=== PATIENT | female | born 1990 | race Caucasian/White ===

== ENCOUNTER 2022-08-07 10:15 | Outpatient (CLI) | payer OTHER, SELFPAY | END 2022-08-07 10:16 | disposition home or self-care (01) | LOC: NFLDREF 10:16 | PROVIDERS: PCP Emergency Medicine; Visit Provider Obstetrics & Gynecology | DX: N93.9 Abnormal uterine and vaginal bleeding, unspecified (principal) | CPT/HCPCS: 84443 ==

== ENCOUNTER 2022-08-28 11:06 | Outpatient (CLI) | payer OTHER, SELFPAY | END 2022-08-28 11:07 | disposition home or self-care (01) | PROVIDERS: PCP Emergency Medicine; Visit Provider Emergency Medicine | DX: D72.819 Decreased white blood cell count, unspecified (principal); N93.9 Abnormal uterine and vaginal bleeding, unspecified | CPT/HCPCS: 80076; 82525; 82607; 82746 ==

== ENCOUNTER 2022-09-15 07:03 | Outpatient (CLI) | payer OTHER, SELFPAY ==
--- NOTE | 2022-09-15 07:15 | CRLHL7_ITS ---
For Patients: As a result of the Century Cures Act, medical imaging exams and procedure reports are released immediately into your electronic medical record. You may view this report before your referring provider. If you have questions, please contact your health care provider. INDICATION: ELEVATED LFTS COMPARISON: none TECHNIQUE: Real time garcia scale imaging and color Doppler analysis was performed of the right upper quadrant. FINDINGS: The patient`s liver is of normal size and has mildly increased echogenicity. There is a normal appearance of the hepatic IVC and proximal abdominal aorta. There is no evidence of ascites. The gallbladder is absent. The common bile duct is of normal size and measures 3.5 mm in diameter at the level of the srini hepatis. The pancreas appears normal. There is no evidence of a stone or hydronephrosis within the right kidney. The right kidney measures 10.6 cm in length. IMPRESSION: Mild hepatic steatosis. Dictated by Floyd Damon MD @ 09/15/2022 9:38:32 AM (Electronically Signed)
== END 2022-09-15 07:04 | disposition home or self-care (01) ==
LOC: US 07:05
PROVIDERS: PCP Emergency Medicine; Visit Provider Emergency Medicine
DX: R74.01 Elevation of levels of liver transaminase levels (principal); K76.0 Fatty (change of) liver, not elsewhere classified
CPT/HCPCS: 76705

== ENCOUNTER 2022-12-15 10:10 | Outpatient (CLI) | payer OTHER, SELFPAY | END 2022-12-15 10:11 | disposition home or self-care (01) | LOC: NFLDREF 12-17 07:13 | PROVIDERS: PCP Emergency Medicine; Referring Provider Emergency Medicine; Visit Provider Emergency Medicine | DX: R78.79 Finding of abnormal level of heavy metals in blood (principal) | CPT/HCPCS: 82525 ==

== ENCOUNTER 2023-05-18 09:28 | Outpatient (CLI) | payer OTHER, SELFPAY | END 2023-05-18 09:29 | disposition home or self-care (01) | LOC: NFLDREF 05-22 15:21 | PROVIDERS: PCP Emergency Medicine; Referring Provider Emergency Medicine; Visit Provider Emergency Medicine | DX: D70.9 Neutropenia, unspecified (principal); D72.819 Decreased white blood cell count, unspecified; K76.0 Fatty (change of) liver, not elsewhere classified; R74.01 Elevation of levels of liver transaminase levels | CPT/HCPCS: 80053; 80061 ==

== ENCOUNTER 2023-11-05 12:15 | Outpatient (CLI) | payer OTHER, SELFPAY ==
--- NOTE | 2023-11-05 12:30 | US_ITS ---
Patient: BASILIA FISHER Facility:?[facility] Patient ID:?[id number] Site Patient ID:?[id number]. Site :?1990 Study:?US-OB Pelvis OB TV-11/05/2023 1:07:14 PM Ordering Physician:?WEN WILSON CNP Final Report: INDICATION: Dating and viability. Last menstrual period 09/06/2023 (gestational age 8 weeks 4 days). TECHNIQUE: Ultrasound OB pelvis transvaginal. Real-time garcia-scale imaging of the pelvis was performed. COMPARISON: None. FINDINGS: There is a single intrauterine gestation. The embryo demonstrates a regular cardiac rate measuring 130 beats per minute. The embryo`s crown rump length measurement of 0.6 cm corresponds to a gestational age of 6 weeks 3 days with a sonographic due date of 06/27/2024. There is a normal-appearing yolk sac, which measures 3 mm. There appears to be a small perigestational hemorrhage along the right aspect of the gestational sac measuring 1.6 x 1.4 cm. The ovaries are normal in sonographic appearance. A corpus luteum is seen within the left ovary measuring up to 1.9 cm. There are no suspicious fluid collections noted in the cul-de-sac. IMPRESSION: Single viable intrauterine with sonographic gestational age of 6 weeks 3 days, which is discordant with the patient`s last menstrual period. Probable small subchorionic hematoma adjacent to the gestational sac measuring up to 1.6 cm. Dictated by Margret Singleton MD @ 11/06/2023 10:48:38 AM Signed by:?Margret Singleton MD @11/06/2023 10:48:38 AM (Electronic Signature)
== END 2023-11-05 12:16 | disposition home or self-care (01) ==
LOC: US 12:16
PROVIDERS: PCP Emergency Medicine; Visit Provider Registered Nurse
DX: Z34.91 Encounter for supervision of normal pregnancy, unspecified, first trimester (principal); Z3A.01 Less than 8 weeks gestation of pregnancy
CPT/HCPCS: 76817; 86703; 86706; 86803; 86850; 86900; 86901; 87086; 87340

== ENCOUNTER 2023-11-05 14:14 | Outpatient (CLI) | payer OTHER, SELFPAY | END 2023-11-05 14:15 | disposition home or self-care (01) | PROVIDERS: PCP Emergency Medicine; Visit Provider Advanced Practice Midwife | DX: Z34.91 Encounter for supervision of normal pregnancy, unspecified, first trimester (principal); Z3A.08 8 weeks gestation of pregnancy | CPT/HCPCS: 86592; 86703; 86704; 86706; 86762; 86787; 86803; 86850; 86900; 86901; 87086; 87340 ==

== ENCOUNTER 2023-11-18 12:44 | Outpatient (CLI) | payer OTHER, SELFPAY ==
--- NOTE | 2023-11-18 13:00 | US_ITS ---
Patient: BASILIA FISHER Facility:?[facility] Patient ID:?[id number] Site Patient ID:?[id number]. Site :?1990 Study:?US-OB Pelvis DATING AND VIABILITY-11/18/2023 1:22:17 PM Ordering Physician:FRANK MC Final Report: INDICATION: Follow-up dating and viability. TECHNIQUE: Ultrasound OB pelvis transvaginal. Real-time garcia-scale imaging of the pelvis was performed. COMPARISON: Ultrasound OB pelvis 11/05/2023. FINDINGS: There is a single intrauterine gestation. The embryo demonstrates a regular cardiac rate measuring 171 beats per minute. The embryo`s crown rump length measurement of 2.3 cm corresponds to a gestational age of 9 weeks, 0 days with a sonographic due date of 06/22/2024. There is a normal appearing yolk sac. There are no gross abnormalities noted within the embryo at this early state of development. The placenta has not yet developed. There is no sign of perigestational hemorrhage. The ovaries are of normal size. Left corpus luteum measuring 2.4 x 1.5 x 2.1 cm. There are no suspicious fluid collections noted in the cul-de-sac. IMPRESSION: Single live intrauterine with an estimated gestational age of 9 weeks, 0 days and a heart rate of 171 bpm. Dictated by Gustabo Chávez MD @ 11/19/2023 8:19:03 AM Signed by:?Gustabo Chávez MD @11/19/2023 8:19:03 AM (Electronic Signature)
== END 2023-11-18 12:45 | disposition home or self-care (01) ==
LOC: US 12:44
PROVIDERS: PCP Emergency Medicine; Visit Provider Advanced Practice Midwife
DX: Z34.91 Encounter for supervision of normal pregnancy, unspecified, first trimester (principal); Z3A.09 9 weeks gestation of pregnancy
CPT/HCPCS: 76817

== ENCOUNTER 2023-11-30 10:19 | Outpatient (CLI) | payer OTHER, SELFPAY | END 2023-11-30 10:20 | disposition home or self-care (01) | LOC: NFLDREF 12-17 09:30 | PROVIDERS: PCP Emergency Medicine; Referring Provider Emergency Medicine; Visit Provider Advanced Practice Midwife | DX: O36.80X0 Pregnancy with inconclusive fetal viability, not applicable or unspecified (principal); R78.79 Finding of abnormal level of heavy metals in blood | CPT/HCPCS: 82525 ==

== ENCOUNTER 2024-02-12 09:10 | Outpatient (CLI) | payer OTHER, SELFPAY ==
--- NOTE | 2024-02-12 09:15 | CRLHL7_ITS ---
For Patients: As a result of the 21st Century Cures Act, medical imaging exams and procedure reports are released immediately into your electronic medical record. You may view this report before your referring provider. If you have questions, please contact your health care provider. INDICATION: Evaluate anatomy. COMPARISON: none TECHNIQUE: Real time garcia scale imaging of the fetus was performed as well as color Doppler analysis of the umbilical vessels. FINDINGS: Sonographic imaging demonstrates a single living intrauterine gestation. heart rate not documented. motion is present, however. Fetus has a breech position. The placenta lies posteriorly without evidence of placenta previa. Placental edge is 3.1 cm from the internal cervical os. Amniotic fluid volume appears normal. Single deepest vertical pocket: 3.3 cm. The cervix is closed and measures 4.3 cm in length. The composite ultrasound gestational age is calculated at 21 weeks 0 days with an estimated sonographic due date of 06/24/2024. The estimated weight is 426 grams which lies at the 89th %. The following biometric measurements were obtained: Biparietal diameter: 4.7 cm/20 weeks 1 day 31st% Head circumference: 18.1 cm/20 weeks 4 days 38th% Abdominal circumference: 15.9 cm/21 weeks 0 days 58th% Femur length: 3.9 cm/22 weeks 3 days 92nd% The HC/AC ratio measures: 1.14 range (1.06-1.25) On anatomic survey, there is a normal appearance of the cavum septi pellucidi, cisterna magna and cerebellum. Bilateral choroid plexus cysts measure 5.6 millimeters on the right and 7 x 5 millimeters on the left. The nose, lips, and facial profile appear normal. The cervical, thoracic and lumbar spine are well visualized and appear normal. There is a normal four-chamber heart view and the left and right ventricular outflow tracts appear normal. The diaphragm and stomach appear normal. The kidneys and bladder also appear normal. There is a normal three-vessel cord and cord insertion site. The four extremities appear normal. IMPRESSION: Concordance of clinical and sonographic dating. Choroid plexus cysts are present measuring 5 x 6 millimeters on the right and 7 x 5 millimeters on the left. Remainder of the anatomic survey normal. A level 2 ultrasound is recommended. heart motion subjectively viewed during the exam but not documented. FHR should be documented on the follow-up study. Incomplete visualization of the 3VV and 3VTV. These could also be reassessed on follow-up imaging. Dictated by Floyd Damon MD @ 02/12/2024 12:20:12 PM (Electronically Signed)
== END 2024-02-12 09:11 | disposition home or self-care (01) ==
LOC: US 09:11
PROVIDERS: PCP Emergency Medicine; Visit Provider Obstetrics & Gynecology
DX: Z34.92 Encounter for supervision of normal pregnancy, unspecified, second trimester (principal); O36.8320 Maternal care for abnormalities of the fetal heart rate or rhythm, second trimester, not applicable or unspecified; Z3A.21 21 weeks gestation of pregnancy
CPT/HCPCS: 76805

== ENCOUNTER 2024-02-24 07:58 | Outpatient (CLI) | payer OTHER, SELFPAY | END 2024-02-24 07:59 | disposition home or self-care (01) | LOC: US 07:59 | PROVIDERS: PCP Emergency Medicine; Visit Provider Obstetrics & Gynecology | DX: O35.03X0 Maternal care for (suspected) central nervous system malformation or damage in fetus, choroid plexus cysts, not applicable or unspecified (principal); Z3A.22 22 weeks gestation of pregnancy | CPT/HCPCS: 76811 ==

== ENCOUNTER 2024-04-06 08:09 | Outpatient (CLI) | payer OTHER, SELFPAY | END 2024-04-06 08:10 | disposition home or self-care (01) | LOC: NFLDREF 04-08 11:34 | PROVIDERS: PCP Emergency Medicine; Referring Provider Emergency Medicine; Visit Provider Obstetrics & Gynecology | DX: Z34.93 Encounter for supervision of normal pregnancy, unspecified, third trimester (principal); Z3A.28 28 weeks gestation of pregnancy | CPT/HCPCS: 86592 ==

== ENCOUNTER 2024-05-04 12:51 | Outpatient (CLI) | payer OTHER, SELFPAY ==
--- NOTE | 2024-05-04 13:00 | US_ITS ---
Patient: BASILIA FISHER Facility:?[facility] Patient ID:?[id number] Site Patient ID:?[id number]. Site :?1990 Study:?US-OB Pelvis FOLLOW UP-05/04/2024 1:56:24 PM Ordering Physician:Arvind Quintero Final Report: INDICATION: Gestational diabetes mellitus. TECHNIQUE: Ultrasound OB pelvis transabdominal. Real-time garcia-scale imaging of the fetus was performed as well as color Doppler and spectral Doppler analysis of the umbilical artery. COMPARISON: None. FINDINGS: Single living intrauterine gestation. heart rate: 145 beats per minute. Presentation: Cephalic. Placenta: Posterior. Amniotic fluid deepest pocket: 4.8 cm. The following biometric measurements were obtained: Biparietal diameter: 8.5 cm, 34 weeks 3 days Head circumference: 31.1 cm, 34 weeks 5 days Abdominal circumference: 29.5 cm, 33 weeks 3 day Femur length: 6.6 cm, 33 weeks 6 days Ultrasound age: 34 weeks 1 day. LMP age: 32 weeks 2 day. MADDISON by US: 06/14/2024. MADDISON by LMP: 06/27/2024. EFW: 2280 +/- 342 gram Grams, 85 %. IMPRESSION.: Single live intrauterine gestation with estimated gestational age of 34 weeks 1 day and estimated weight of 2280 grams. Dictated by Chase Mcnally MD @ 05/05/2024 11:05:18 AM Signed by:?Chase Mcnally MD @05/05/2024 11:05:18 AM (Electronic Signature)
== END 2024-05-04 12:52 | disposition home or self-care (01) ==
LOC: US 12:51
PROVIDERS: PCP Emergency Medicine; Visit Provider Obstetrics & Gynecology
DX: O24.419 Gestational diabetes mellitus in pregnancy, unspecified control (principal); Z3A.34 34 weeks gestation of pregnancy
CPT/HCPCS: 76816

== ENCOUNTER 2024-06-02 08:06 | Outpatient (CLI) | payer OTHER, SELFPAY ==
--- NOTE | 2024-06-02 08:15 | CRLHL7_ITS ---
For Patients: As a result of the Century Cures Act, medical imaging exams and procedure reports are released immediately into your electronic medical record. You may view this report before your referring provider. If you have questions, please contact your health care provider. INDICATION: Third trimester scan, evaluate growth. COMPARISON: 05/04/2024 TECHNIQUE: Real time garcia scale imaging of the fetus was performed. FINDINGS/IMPRESSION: Sonographic imaging demonstrates a single living intrauterine gestation. Fetus demonstrates a regular cardiac rate of 144 beats per minute. Fetus has a vertex position. The placenta lies left fundal posterior. Amniotic fluid volume appears normal and there is a single deepest vertical pocket: 4.5 cm. The estimated weight is 3159gm which lies at the 75th %. On the prior OB ultrasound exam dated 05/04/2024 the estimated weight was at the 85th%. BPD 84th percentile. HC is 61st percentile. AC 84th percentile. FL 51st percentile. The HC/AC ratio measures 1.00 range (0.91-1.05). Sonographic gestational age 37 weeks 2 days and sonographic due date 06/21/2024. Sonographic age 6 days ahead of the clinical age. Dictated by Floyd Damon MD @ 06/03/2024 8:58:32 AM (Electronically Signed)
== END 2024-06-02 08:07 | disposition home or self-care (01) ==
LOC: US 08:06
PROVIDERS: PCP Emergency Medicine; Visit Provider Obstetrics & Gynecology
DX: O24.419 Gestational diabetes mellitus in pregnancy, unspecified control (principal); Z3A.37 37 weeks gestation of pregnancy
CPT/HCPCS: 76816; 87081; 87653

== ENCOUNTER 2024-06-20 06:50 | Inpatient (IN) | payer OTHER, SELFPAY ==
[2024-06-20] VITALS (38 sets, daily range): BP systolic 110–176; BP diastolic 56–101; PULSE 56–101; RESP 16–18; TEMP 36.5–36.9; O2SAT 93–100; BMI 33.3
[2024-06-20 07:52] LABS: Eosinophils Absolute Auto 0.04 K/uL (0.00-0.50); Eosinophils Percent Auto 0.8 % (0.0-7.0); Hematocrit 38.3 % (33.0-51.0); Immature Granulocytes Abs Auto 0.01 K/uL (0.00-0.30); Immature Granulocytes Pct Auto 0.2 %; Lymphocytes Absolute Auto 1.27 K/uL (0.90-2.90); Lymphocytes Percent Auto 26.2 % (20-44); Mean Corpuscular HGB Conc 34 gm/dL (32-36); Mean Corpuscular Hemoglobin 28 pg (26-34); Mean Corpuscular Volume 84 fL (80-100); Monocytes Percent Auto 7.6 % (0.0-11.0); Neutrophils Absolute Auto 3.15 K/uL (1.7-7.0); Neutrophils Percent Auto 65.2 % (42.0-72.0); Platelet Count* 158 K/uL (140-440); RDW Coefficient of Variation % 12.5 % (11.5-15.5); Red Blood Count 4.57 m/uL (4.00-5.20); White Blood Count* 4.84 K/uL (4.50-11.00)
[2024-06-20] MEDS: LACTATED RINGERS 1000 ML 1,000 ML 25 ML IV (07:53)
[2024-06-20] MEDS: OXYTOCIN 30 unit/500 ML in NS 30 UNIT/500 ML BAG IVPB (07:54)
--- NOTE | 2024-06-20 08:04 | W.PM.LDBA ---
Subjective History of Present Illness Time Seen by Provider: 07:45 Date Seen: 06/20/24 Narrative: Patient is being admitted to Labor and Delivery for labor due to GDM A1 her blood sugar this morning was 100. She is a 33 year old at 39 weeks gestation. Her full history and physical was dictated by Dr. Quintanilla on 06/08/2024. Please see this for details. She reports normal movement. She had some regular contractions over the weekend but then they went away. No bloody show or abnormal vaginal discharge. No leaking fluid. Verbal consent obtained to perform artificial rupture of membranes. Specific Issues/Plans : [employer]: Jhonny Feliciano. Baby: Girl! Yvonne H&P by [facility] on 06/08/2024 Dating by 1st trimester US: 15 day difference between LMP and u/s dating. Gestational diabetes. Currently diet-controlled. 1hr GTT: 204 Referral to nutrition placed on 04/06/2024 Ultrasounds for estimated weight at 32 (order placed on 04/06/2024) and 36 weeks (ordered on 04/20/24) If GDM A2: Twice weekly testing recommended Mild thrombocytopenia: 04/06/24 138K Platelets at 34 wks: 158K Hx of low white blood cell count -mildly low again at NOB Hx of high copper level once, repeat normal -previously worked up for, repeat WNL during this Hx of heart murmur as a child Choroid plexus cysts noted at 20 weeks, 4 days. Referral for level 2 ultrasound placed Maternity 21 testing was normal Repeat USN at 32-34 weeks for EFW due to >97% at LVL 2 Imagin. LVL 2 USN: normal anatomy visualized. Choroid plexus cysts resolved. EFW >97% 2. 05/04/2024 32wks: Vtx, SDP 4.9cm. EFW 2280 g, 5 lb 0 oz, 85%. BPD 93%, HC 77%, AC 81%, FL 80% 3. 06/02/24: cephalic, SDP 4.5, EFW 75%, AC 84%. Flu/covid: declined TDAP: 04/20/2024 RSV: Declined 34wk hgb: 13.0 GBS: Neg OB - Problem Based A/P Additional Plan (1) Encounter for induction of labor: Status: Acute Plan: 1. Start Pitocin per induction protocol. 2. GBS negative 3. Artificial rupture of membranes occurred at 7:50 a.m., clear fluid 4. Planning an epidural for labor analgesia. 5. Blood type A positive (2) Gestational diabetes: Status: Acute Plan: 1. Monitor blood sugars her gestation diabetes protocol OB Exam Physical Exam Vital signs: Temp Pulse Resp BP Pulse Ox 97.8 F 70 18 127/83 98 06/20/24 06:46 06/20/24 08:00 06/20/24 06:46 06/20/24 08:00 06/20/24 08:00 Narrative: GENERAL APPEARANCE: Pleasant, , well-groomed woman in no acute distress. VITAL SIGNS: as noted in nursing notes HEAD: Normocephalic, atraumatic. THYROID: no masses, nodularity, tenderness or enlargement. LUNGS: Clear to auscultation bilaterally without wheezes, rales or rhonchi. HEART: Regular rate and rhythm with normal S1 and S2. No gallop, rub or murmur. ABDOMEN: Gravid. Soft, nontender, nondistended, with normal bowels sounds throughout. EFM: Baseline 120 bpm. Accelerations: present. Decelerations: absent. Moderate variability. Category 1. TOCO: 1 contraction/30 minutes PRESENTATION: Vertex by Talha's maneuvers. SVE: 3 cm/ 60 %/ -1/soft/mid. Esparza score: 9 EXTREMITIES: No cyanosis, clubbing, or edema. No varicosities. NEUROLOGIC: Normal gait and balance. Normal deep tendon reflexes at bilateral patella 2+/2, equal without clonus. PSYCHIATRIC: alert and oriented x3. Normal speech pattern, eye contact and affect. SKIN: Warm, dry, and well perfused. Good turgor. No lesions, nodules or rashes.
[2024-06-20 08:07] LABS: Slide Review Reflex No
[2024-06-20] MEDS: BUPIVACAINE 0.25% PF 10 ML 10 ML ML EPIDURAL (10:50)
[2024-06-20] MEDS: ROPIVACAINE 0.2% 100 ml 100 ML 12 MG EPIDURAL (10:57)
[2024-06-20] MEDS: LACTATED RINGERS 1000 ML 1,000 ML 1200 ML IV (11:03)
--- NOTE | 2024-06-20 12:27 | PM.OBPNL ---
Subjective Time Seen by Provider: 12:15 Date Seen: 06/20/24 Narrative: Subjective: Patient is comfortable w/ epidural. Pitocin: 8 milliunits/minute. Vital signs: Per electronic medical record. EFM: Baseline 110-120bpm, positive accelerations, negative decelerations, moderate variability, reactive. Category 1. [place]: Contractions every 2 minutes. SVE: 8 cm/100 %/0. Assessment: 33-year-old 3 para 2 at 39 weeks 0 days gestation undergoing induction of labor for GDM A1 Plan: 1. Continue Pitocin per labor induction protocol. 2. Continue epidural for labor analgesia. 3. Expect vaginal delivery. Objective Vital Signs: Last Vital Signs Temp 97.9 F 06/20/24 11:50 Pulse 76 06/20/24 12:19 Resp 16 06/20/24 11:50 BP 119/71 06/20/24 12:19 Pulse Ox 100 06/20/24 11:21
--- NOTE | 2024-06-20 12:51 | W.PM.OBVAGDE ---
OB Procedure Vag Delivery Mother Details Mother Details: The patient is a 33 year-old, 3, Para 2, admitted on 06/20/24 at 39w0d gestation. Additional Details Amniotic Membrane Status: AROM Amniotic Membrane Rupture Date: 06/20/24 Amniotic Membrane Rupture Time: 07:50 Amniotic Membrane Fluid Description: Clear Analgesia/Anesthesia Type: Epidural Waterbirth: No Pitcoin: Yes Intrapartal Events: Labor Induction Induction Method: per pitocin protocol Labor Onset: 09:55 Complete: 12:39 Pushin:40 Heart: heart tones during second stage were category 2, reassuring. Delivery Details Delivery Date: 06/20/24 Delivery Time: 12:40 Route of delivery: Gender: Female Infant Viability: Alive; Heart Rate Present Position at Delivery: OA Delivery Details: Delivered via spontaneous vaginal delivery. Infant was placed on maternal abdomen.? Cord was clamped and cut after a 60 second delay. Nose and mouth were bulb suctioned.? Infant weight pending. The nurse delivered the infant and I arrived <30seconds after delivery. Placenta delivered spontaneously and complete with 3 vessel cord at 12:46 p.m. QBL: 25 mL Lacerations: None. 1 Minute Interval Total Score: 8 5 Minute Interval Total Score: 9 Additional Details Shoulder Dystocia: No Placenta Delivery Time: 12:46 Placental Delivery Description: Spontaneous Procedure Done: Global Laceration: None Blood Loss Measurement Type: QBL Bakri Used: No Sponge/Need Count Correct: Yes Cord Vessel Description: 3 Vessels Event Summary Status: Mother and infant were stable after delivery. Disposition: floor
--- NOTE | 2024-06-20 13:42 | PM.ANBPRC ---
[facility] Medical History (Updated 06/20/24 @ 12:59 by Ingrid Quintanilla MD) Choroid plexus cyst of fetus on ultrasound Systolic murmur ?R01.1 - Cardiac murmur, unspecified (ICD-10) Allergic reaction to wasp sting ?T63.461A - Toxic effect of venom of wasps, accidental (unintentional), initial encounter (ICD-10) Encounter for preventive care ?Z00.00 - Encounter for general adult medical examination without abnormal findings (ICD-10) Hepatic steatosis ?K76.0 - Fatty (change of) liver, not elsewhere classified (ICD-10) Heart murmur ?R01.1 - Cardiac murmur, unspecified (ICD-10) Elevated transaminase level ?R74.01 - Elevation of levels of liver transaminase levels (ICD-10) High blood copper level ?R78.79 - Finding of abnormal level of heavy metals in blood (ICD-10) Neutropenia ?D70.9 - Neutropenia, unspecified (ICD-10) Leukopenia ?D72.819 - Decreased white blood cell count, unspecified (ICD-10) Abdominal pain ?R10.9 - Unspecified abdominal pain (ICD-10) ?Z34.90 - Encounter for supervision of normal , unspecified, unspecified trimester (ICD-10) Surgical History (Updated 11/05/23 @ 13:52 by Coni Gill CNM) [place] teeth extracted ?K08.409 - Partial loss of teeth, unspecified cause, unspecified class (ICD-10) History of cholecystectomy ?Z90.49 - Acquired absence of other specified parts of digestive tract (ICD-10) Family History Paternal Grandfather Coronary artery disease Mother Diabetes Social History (Updated 11/05/23 @ 15:14 by Coni Gill CNM) Narrative: SOCIAL? ? Education: college, bachelors? ? Work: marketing production specialist? ? Partner: Ray, , construction? ? Lives with: Ray, kids? ? Pets: dog, cat? ? Abuse: Denies past. Unable to assess current, partner present? ? Special Diet: Denies? ? Ok with a blood transfusion: yes? ? Culture or bahai beliefs: denies? RISK FACTORS? ? Exercise Times/wk: walk 3 times a week? ? Depression/Anxiety: ? ? Previous Treatments: NA Therapy: NA ELE: 0 PHQ 9: 0? ? Seat Belt Use: Routinely ? Smoking: Denies past/present? ? Alcohol/day: Denies while ? ? Caffeine: occasional? ? Drug Use: Denies past/present? What is your current living situation?: I presently have a place to live Problems where you live: no known problems In the past 12 months, utilities in danger of being shut off: no In past 12 months, lack of transportation kept you from medical appts, meetings, work, or getting things needed for daily living: no In the past 12 mos, have been you worried that your food would run out before you had money to buy more?: never true In the past 12 mos, the food you bought just didn't last and you didn't have money to buy more?: never true Smoking Status: Never smoker How often does anyone, including family, friends and others, physically hurt you: never How often does anyone, including family, friends and others, insult or talk down to you: never How often does anyone, including family, friends and others, threaten you with harm: never How often does anyone, including family, friends and others, scream or curse at you: never Meds Home Medications and Allergies Home Medications ?Medication ?Instructions ?Recorded ?Confirmed ?Type vits no.126-ferrous fum tab PO .qday 11/05/23 06/16/24 History 28 mg iron-folic acid 800 mcg tablet (Classic ) Allergies Allergy/AdvReac Type Severity Reaction Status Date / Time bee venom protein (honey bee) Allergy Unknown Hives Verified 06/16/24 08:18 Results Labs Labs: Laboratory Results - last 24 hr 06/20/24 07:40 WBC 4.84 RBC 4.57 Hgb 13.0 Hct 38.3 MCV 84 MCH 28 MCHC 34 RDW Coeff of Amos 12.5 Plt Count 158 Neut % (Auto) 65.2 Lymph % (Auto) 26.2 Grimes % (Auto) 7.6 Eos % (Auto) 0.8 Baso % (Auto) 0.0 Neut # (Auto) 3.15 Lymph # (Auto) 1.27 Grimes # (Auto) 0.40 Eos # (Auto) 0.04 Baso # (Auto) 0.00 Abs Immat Gran (auto) 0.01 Imm/Tot Granulo (auto) 0.2 Blood Type A Positive Antibody Screen NEGATIVE Vital Signs Vital Signs: Last Vital Signs Temp 97.9 F 06/20/24 11:50 Pulse 59 L 06/20/24 13:38 Resp 16 06/20/24 11:50 BP 117/56 L 06/20/24 13:38 Pulse Ox 100 06/20/24 11:21 Weight: 96.388 kg Height: 170.18 cm Anesthesia Procedures Epidural Insertion Patient Location: OB Start Time: 10:40 Stop Time: 11:30 Start Date: 06/20/24 Stop Date: 06/20/24 Reason for Block: procedure for pain Patient Position: sitting Performed By: Luis Lawrence Preanesthetic Checklist: IV checked, risks and benefits discussed, surgical consent, monitors and equipment checked, pre-op evaluation, timeout performed and anesthesia consent Prep: chlorhexidine gluconate Monitoring: blood pressure monitoring, continuous pulse oximetry and heart rate Approach: midline Vertebral Space: lumbar (1-5) Epidural Technique: JAKY saline Needle Type: Tuohy needle Injection Technique: continuous catheter Needle gauge: 17 Needle Length (cm): 10 cm Needle Insertion Depth (cm): 6 Catheter Gauge: 19 Catheter Type: multi-orifice Catheter at skin depth (cm): 12 Test Dose Result: negative and lidocaine 1.5% with epinephrine 1 to 200,000
[2024-06-20] MEDS: DOCUSATE SODIUM 100 MG CAPSULE PO (20:28)
[2024-06-21 00:20] VITALS: BP 116/71; PULSE 88; RESP 17; TEMP 36.6
[2024-06-21] MEDS: ACETAMINOPHEN 500 MG TABLET 1000 MG PO (01:25)
[2024-06-21 05:08] VITALS: BP 95/52; PULSE 88; RESP 16; TEMP 36.7
[2024-06-21 07:18] LABS: Hemoglobin* 12.5 gm/dL (12.0-16.0)
--- NOTE | 2024-06-21 07:34 | P.DS_ITS ---
DS: Providers Provider Date Seen: 06/21/24 Date of admission: 06/20/24 06:50 Primary care physician: Dominga Valerio Admitting Clinician: Ingrid Quintanilla MD Attending Physician on discharge: Ruthy Pop CNM DS: Diagnosis Discharge Diagnosis (1) (normal spontaneous vaginal delivery): Status: Acute (2) Thrombocytopenia affecting : Status: Acute (3) Gestational diabetes: Status: Acute (4) care and examination immediately after delivery: Status: Acute (5) Lactating mother: Status: Acute Exam Narrative: Exam Narrative: GENERAL APPEARANCE:? normal affect, alert, no distress MOOD:? appropriate CHEST:? clear to auscultation HEART:? regular rate and rhythm ABDOMEN:? soft, non-tender the uterine fundus is At Umbilicus, Midline and is appropriate for the stage of recovery. PERINEUM:? mild edema of the perineum. EXTREMITIES:? normal and no edema INCISION: Healing well, no surrounding erythema, abnormal induration or discharge Const: Vital Signs, click to edit/add: Vital Signs - 24 hr 06/20/24 08:00 06/20/24 08:58 06/20/24 08:59 Temperature 98.2 F 97.7 F Pulse Rate 70 91 Pulse Rate [Blood Pressure Cuff] Respiratory Rate 16 16 Blood Pressure 127/83 129/86 Blood Pressure [Ri ght Arm] Pulse Oximetry 98 Oxygen Delivery Me thod 06/20/24 09:06 06/20/24 10:46 06/20/24 10:51 Temperature 98.0 F Pulse Rate 59 L Pulse Rate [Blood Pressure Cuff] Respiratory Rate 17 Blood Pressure 137/81 Blood Pressure [Ri ght Arm] Pulse Oximetry 100 100 100 Oxygen Delivery Me thod 06/20/24 10:52 06/20/24 10:54 06/20/24 10:56 Temperature Pulse Rate 60 Pulse Rate [Blood Pressure Cuff] Respiratory Rate Blood Pressure 144/73 H Blood Pressure [Ri ght Arm] Pulse Oximetry 93 100 Oxygen Delivery Me thod 06/20/24 10:58 06/20/24 11:00 06/20/24 11:01 Temperature Pulse Rate 64 64 Pulse Rate [Blood Pressure Cuff] Respiratory Rate Blood Pressure 128/81 123/68 Blood Pressure [Ri ght Arm] Pulse Oximetry 100 Oxygen Delivery Me thod 06/20/24 11:02 12/23/24 11:04 06/20/24 11:06 Temperature Pulse Rate 58 L 63 63 Pulse Rate [Blood Pressure Cuff] Respiratory Rate Blood Pressure 129/75 131/76 130/78 Blood Pressure [Ri ght Arm] Pulse Oximetry 100 Oxygen Delivery Me thod 06/20/24 11:11 06/20/24 11:13 06/20/24 11:16 Temperature Pulse Rate 97 Pulse Rate [Blood Pressure Cuff] Respiratory Rate Blood Pressure 116/73 Blood Pressure [Ri ght Arm] Pulse Oximetry 100 100 Oxygen Delivery Me thod 06/20/24 11:17 06/20/24 11:21 06/20/24 11:23 Temperature Pulse Rate 86 90 Pulse Rate [Blood Pressure Cuff] Respiratory Rate Blood Pressure 110/77 121/74 Blood Pressure [Ri ght Arm] Pulse Oximetry 100 Oxygen Delivery Me thod 06/20/24 11:27 06/20/24 11:33 06/20/24 11:50 Temperature 97.9 F Pulse Rate 90 80 68 Pulse Rate [Blood Pressure Cuff] Respiratory Rate 16 Blood Pressure 120/73 129/72 123/73 Blood Pressure [Ri ght Arm] Pulse Oximetry Oxygen Delivery Me thod 06/20/24 12:05 06/20/24 12:19 06/20/24 12:34 Temperature Pulse Rate 71 76 78 Pulse Rate [Blood Pressure Cuff] Respiratory Rate Blood Pressure 113/65 119/71 134/74 Blood Pressure [Ri ght Arm] Pulse Oximetry Oxygen Delivery Me thod 06/20/24 12:49 06/20/24 12:49 06/20/24 13:07 Temperature 98.0 F Pulse Rate 63 85 Pulse Rate [Blood Pressure Cuff] 63 Respiratory Rate 16 Blood Pressure 133/69 110/62 Blood Pressure [Ri ght Arm] Pulse Oximetry Oxygen Delivery Me thod 06/20/24 13:19 06/20/24 13:35 06/20/24 13:38 Temperature Pulse Rate 75 78 59 L Pulse Rate [Blood Pressure Cuff] Respiratory Rate Blood Pressure 126/59 L 176/101 H 117/56 L Blood Pressure [Ri ght Arm] Pulse Oximetry Oxygen Delivery Me thod 06/20/24 13:49 06/20/24 13:49 06/20/24 14:04 Temperature 97.9 F Pulse Rate 65 60 Pulse Rate [Blood Pressure Cuff] 65 Respiratory Rate 16 Blood Pressure 115/61 118/69 Blood Pressure [Ri ght Arm] Pulse Oximetry Oxygen Delivery Me thod 06/20/24 14:04 06/20/24 14:19 06/20/24 14:19 Temperature Pulse Rate 64 Pulse Rate [Blood Pressure Cuff] 60 64 Respiratory Rate 16 16 Blood Pressure 122/67 Blood Pressure [Ri ght Arm] Pulse Oximetry Oxygen Delivery Me thod 06/20/24 16:40 06/20/24 20:29 06/21/24 00:20 Temperature 98.4 F 97.8 F 97.8 F Pulse Rate Pulse Rate [Blood Pressure Cuff] 84 88 88 Respiratory Rate 16 16 17 Blood Pressure Blood Pressure [Ri ght Arm] 119/74 113/67 116/71 Pulse Oximetry 99 Oxygen Delivery Me thod Room Air 06/21/24 05:08 Temperature 98.0 F Pulse Rate Pulse Rate [Blood Pressure Cuff] 88 Respiratory Rate 16 Blood Pressure Blood Pressure [Ri ght Arm] 95/52 L Pulse Oximetry Oxygen Delivery Me thod OB - DS: Summary Hospital Course Hospital Course: Dusty is a 33 y.o. G 3 P 3 who was admitted to [facility] for IOL for GDM. ?She had a NVD that was uncomplicated. The patient feels well. ?The pain is well controlled with current medications. ?She has no new complaints. ?She is breast feeding and reports things are going well. the patient has done well.? Vitals have been stable.? She has remained afebrile.? Has a good appetite, is tolerating a general diet. ?She is voiding without difficulty.? She is passing gas and has not had a bowel movement.? She is ambulating and denies any dizziness.? Has small amount of rubra lochia. She is planning pills for prevention. Problems: none plan: Discharge home with baby. Follow up in 2 weeks and 6 weeks. , may see if needed Hgb 12.5. GDM, plans 2 hour gct at 6 week visit Peripartum Data Infant delivery method: Vaginal Laceration description: None complications: none [place] Infant Gender: Female Infant Discharge Plan: Home Status at Discharge Functional status at discharge: independent ambulation Overall status at discharge: patient is progressing back to baseline Time Spent with Patient Time attestation: Total time spent providing and/or coordinating discharge services: Time spent: Less than 30 minutes Discharge Plan Discharge Disposition: Home, Self-Care Date of Admission: 06/20/24 06:50 Attending Provider on Discharge: Ruthy Pop Primary Care Provider: Dominga Valerio Condition: Stable Anticipated Discharge Date/Time: 06/21/24 12:00 Discharge Medications: New docusate sodium 100 mg Capsule 100 mg PO BID PRN (Reason: constipation) Qty: 90 0RF ibuprofen 600 mg Tablet 600 mg PO Q6H PRNQty: 0 0RF acetaminophen 500 mg Tablet 1,000 mg PO Q6H PRNQty: 0 0RF Continued epinephrine [EpiPen 2-Adrian] 0.3 mg/0.3 mL auto-injector 0.3 mg IM ONCE Qty: 2 0RF Rx Instructions: as a single dose; may repeat once Classic 28 mg iron- 800 mcg tablet PO .qday Discontinued (DME) Test Strips Misc See Rx Instructions .MEDSUPPLY Qty: 100 3RF Rx Instructions: Test blood sugar 4 times daily. (DME) lancets Misc See Rx Instructions .MEDSUPPLY Qty: 100 3RF Rx Instructions: Test blood sugar 4 times daily. (DME) Blood Glucose Meter Misc See Rx Instructions .MEDSUPPLY Qty: 1 0RF Rx Instructions: As directed Discharge Orders: Discharge Order (Routine); Ordered 06/21/24 Ordered By: Ruthy Pop Patient Education: OB Over the Counter Medication Information, OB Vaginal/Breast Feeding Additional Instructions: Discharge instructions were reviewed with the patient including signs and symptoms of infection and home going medications Nothing vaginally for 6 weeks: no tampons or intercourse Off Work or School for 6 weeks 2-week visit: discuss infant feeding concerns, review control options and screen for anxiety/depression. 6-week visit for an annual exam with 2 hour glucose test. consultation services are available to all mothers and babies for the first year after delivery.? To make an appointment, please call [phone]. Activity Level: Activity as Tolerated Discharge Diet: Regular Follow Up Appointments: [facility] [Provider Group] Forms: [facility] Info Instructions
[2024-06-21 09:10] VITALS: BP 124/74; PULSE 47; RESP 16; TEMP 36.8; O2SAT 100
--- NOTE | 2024-06-21 09:23 | PM.ANPOST ---
Post Anesthesia Note Post Anesthesia Note Patient seen: Inpatient Respiratory Status: adequate Cardiovascular Status: adequate Mental Status: baseline Pain: adequate Temp: baseline Anesthetic awareness: N/A Complications: none Follow care: none
[2024-06-22 17:01] LABS: Rapid Plasma Reagin (RPR) Non Reactive (Non Reactive)
== END 2024-06-21 13:50 | disposition home or self-care (01) | DRG 806 ==
PROVIDERS: Admitting Provider Obstetrics & Gynecology; PCP Emergency Medicine; Visit Provider Obstetrics & Gynecology
DX: O24.420 Gestational diabetes mellitus in childbirth, diet controlled (principal); O99.12 Other diseases of the blood and blood-forming organs and certain disorders involving the immune mechanism complicating childbirth; Z37.0 Single live birth; Z3A.39 39 weeks gestation of pregnancy; D69.6 Thrombocytopenia, unspecified; Z86.79 Personal history of other diseases of the circulatory system; R01.1 Cardiac murmur, unspecified
CPT/HCPCS: 01967; 36415; 82962; 85018; 85025; 86592; 86850; 86900; 86901; A9270; J0665; J2371; J2795; J7120

== ENCOUNTER 2024-07-01 11:09 | Outpatient (CLI) | payer OTHER, SELFPAY ==
--- NOTE | 2024-07-01 16:31 | W.PM.LAC.MC ---
Consult Note - Mom Date of Visit Date of visit: 07/01/24 Reason for consultation: Assistance Needed (trying to latch without nipple shield as baby can't get milk transferred with nipple shield in place) Visit Code: Visit Patient's Information Phone number: [phone] : 3 Para: 3 Allergies bee venom protein (honey bee) Allergy (Unknown, Verified 06/16/24 08:18) Hives Mother's Medical History: Medical History (Updated 06/24/24 @ 00:01 by Background [place]) (normal spontaneous vaginal delivery) (06/20/24) ?O80 - Encounter for full-term uncomplicated delivery (ICD-10) Gestational diabetes ?O24.419 - Gestational diabetes mellitus in , unspecified control (ICD-10) Choroid plexus cyst of fetus on ultrasound Systolic murmur ?R01.1 - Cardiac murmur, unspecified (ICD-10) Allergic reaction to wasp sting ?T63.461A - Toxic effect of venom of wasps, accidental (unintentional), initial encounter (ICD-10) Encounter for preventive care ?Z00.00 - Encounter for general adult medical examination without abnormal findings (ICD-10) Hepatic steatosis ?K76.0 - Fatty (change of) liver, not elsewhere classified (ICD-10) Heart murmur ?R01.1 - Cardiac murmur, unspecified (ICD-10) Elevated transaminase level ?R74.01 - Elevation of levels of liver transaminase levels (ICD-10) High blood copper level ?R78.79 - Finding of abnormal level of heavy metals in blood (ICD-10) Neutropenia ?D70.9 - Neutropenia, unspecified (ICD-10) Leukopenia ?D72.819 - Decreased white blood cell count, unspecified (ICD-10) Abdominal pain ?R10.9 - Unspecified abdominal pain (ICD-10) ?Z34.90 - Encounter for supervision of normal , unspecified, unspecified trimester (ICD-10) Delivery Information Gestational Age: 39 weeks Gestational Weight For Age: AGA Weight: 3.54 kg Baby's Information Baby's Age at Visit: 11 days Baby's Provider or Clinic: [facility] Jaundice: No Past Experience Past Experience: Yes (1st x9 mos; 2nd x6mos with shield-question if has a tongue tie) Current Frequency of Day Feedings: every 3 hrs Frequency of Night Feedings: every 3 hrs Both Breasts: Yes (if latching, mostly pumping and bottling for several days) Suck: can't get milk with nipple shield on Latch: seems deep, comfortable with shield Length of Time: 30-40 minutes Pumping Pumping: Yes Quantity Pumped: 5 oz total every 3 hours Supplementing EBM Supplement: Yes Formula Supplement: No Baby Elimination Number of Wet Diapers a Day: ea feeding Number of BM a Day: 6 or more/day Breast/Nipple Condition Breast Information: Breasts are symmetrical with rounded lower quadrants, intramammary distance is less than 1.5 inches. No erythema. Nipples are supple, everted prior to feeding. Breast Shape: Round Engorgement: No Maternal Nipple Condition - Left: Common Nipple Maternal Nipple Condition - Right: Common Nipple Sore Nipples: No Baby Assessment Skin: Normal Tongue/frenulum: Restricted mid-range (very slight but noted) Palate: Average Lips: Relaxed, Symmetrical and Other (closed while sleeping) Jaw Alignment: Symmetrical Mucosa: [place], moist Onsite Observation Pre-Feed weight: 3.522 kg (up 252 gms in 7 days; average 36 gm/day) Post-Feed weight: 3.56 kg Milk Transferred (mL): 38 Position: Cross cradle Attachment/latch-on achieved: Easily Suck pattern: Suck burst and normal rest Swallow: Audible, consistent Behavior following feed: Alert, content Pre-Nursing Left Nipple: Within Normal Limits Pre-Nursing Right Nipple: Within Normal Limits Post-Nursing Left Nipple: Within Normal Limits Post-Nursing Right Nipple: Within Normal Limits Assessments/Interventions Assessments/Interventions: Mom using nipple shield as she thought she had flat nipples; nipples easily marissa from her breast. But when baby nurses with nipple shield on, will still take 2 oz from a bottle afterward and not be settled until she does. Using more of a breast sandwich technique, mom was able to get baby latched and into a suckling pattern on both breasts; baby on and off a little while learning this new way but mom persistent in working with babe. Showed mom how to gently practice with baby getting her chin down for a yawn wide gape prior to bringing her to breast for deepest latch possible. Discussed role of tongue tie; it is mild, but may be impacting babe's ability to keep breast compressed to draw out milk. Mom will work with this new technique over the weekend; if babe not making progress, will call in for resources re: a frenulectomy assessment (prefers to call vs going home with the resources). Education provided: Early feeding cues to maximize timing of latching, Asymmetric latch technique for wide/deep latch to increase milk, Transfer for baby and increase comfort for mom and Pumping for milk management Follow-Up Suggested follow up: Appointment as needed Time Spent Time spent with patient (min): 90 Meds Home Medications and Allergies Home Medications ?Medication ?Instructions ?Recorded ?Confirmed ?Type vits no.126-ferrous fum tab PO .qday 11/05/23 06/16/24 History 28 mg iron-folic acid 800 mcg tablet (Classic ) Allergies Allergy/AdvReac Type Severity Reaction Status Date / Time bee venom protein (honey bee) Allergy Unknown Hives Verified 06/16/24 08:18
== END 2024-07-01 11:10 | disposition home or self-care (01) ==
LOC: OB LAC 11:12
PROVIDERS: PCP Emergency Medicine; Visit Provider Obstetrics & Gynecology
DX: Z39.1 Encounter for care and examination of lactating mother (principal)
CPT/HCPCS: G0463

== ENCOUNTER 2024-12-01 13:57 | Outpatient (CLI) | payer OTHER, SELFPAY ==
--- NOTE | 2024-12-01 14:00 | CRLHL7_ITS ---
For Patients: As a result of the Cures Act, medical imaging exams and procedure reports are released immediately into your electronic medical record. You may view this report before your referring provider. If you have questions, please contact your health care provider. OB ULTRASOUND LESS THAN 14 WEEKS, 12/01/2024 CLINICAL HISTORY: Dating and viability. IMAGING: TV. LMP: 09/29/2024. MADDISON by LMP: 07/06/2025. GA: 9 weeks 0 days. PREVIOUS US: No. CRL: 1.7 cm, 8 weeks 1 day. MADDISON 07/12/2025. FHR: 171 bpm. GEST SAC: 4.0 cm, appears WNL. YOLK SAC: 3.0 mm, appears WNL. RIGHT OV: WNL 5.2 x 2.6 x 2.0 cm. CL LEFT OV: 1.6 x 2.1 x 1.6 cm. IMPRESSION: 1. Single living intrauterine measuring 8 weeks 1 day and sonographic due date 07/12/2025. 2. Subchorionic hemorrhage measures 2.6 x 1.2 x 1.3 cm. 3. Simple right ovarian cyst measures 2.0 x 2.0 x 2.3 cm. Corpus luteal left ovarian cyst measures 1.6 x 2.1 x 1.6 cm. Floyd Damon M.D. Diagnostic Radiologist [email or web address] Transcribed: 9:52 am DW/Dictated by: Floyd Damon MD @ 12/05/2024 5:54:00 AM (Electronically Signed)
== END 2024-12-01 13:58 | disposition home or self-care (01) ==
PROVIDERS: PCP Emergency Medicine; Visit Provider Physician Assistant
DX: Z34.91 Encounter for supervision of normal pregnancy, unspecified, first trimester (principal); O20.9 Hemorrhage in early pregnancy, unspecified; Z3A.08 8 weeks gestation of pregnancy
CPT/HCPCS: 76817; 83021; 86703; 86706; 86803; 87086; 87340

== ENCOUNTER 2024-12-01 14:45 | Outpatient (CLI) | payer OTHER, SELFPAY | END 2024-12-01 14:46 | disposition home or self-care (01) | PROVIDERS: PCP Emergency Medicine; Visit Provider Physician Assistant | DX: Z34.91 Encounter for supervision of normal pregnancy, unspecified, first trimester (principal); Z3A.09 9 weeks gestation of pregnancy | CPT/HCPCS: 83020; 83021; 85660; 86592; 86703; 86704; 86706; 86762; 86787; 86803; 87086; 87340 ==

== ENCOUNTER 2025-02-16 08:10 | Outpatient (CLI) | payer OTHER, SELFPAY ==
--- NOTE | 2025-02-16 08:15 | CRLHL7_ITS ---
For Patients: As a result of the Century Cures Act, medical imaging exams and procedure reports are released immediately into your electronic medical record. You may view this report before your referring provider. If you have questions, please contact your health care provider. OB ULTRASOUND GREATER THAN 14 WEEKS, 02/16/2025 CLINICAL HISTORY: anatomy survey. COMPARISON: None. TECHNIQUE: Realtime garcia scale imaging of the fetus was performed. Transabdominal imaging performed. FINDINGS: LMP: 09/29/2024. MADDISON by LMP: 07/06/2025. GA: 20 weeks 0 days. Position: Breech. Cervix: Visualized. Technique: TA. Length of closed cervix: 3.1 cm. Placenta/Cord: Placenta Position: Posterior. Technique: TA. Placenta tip to internal OS: 3.3 cm. Umbilical Cord: 3 vessel cord. Placental Insertion: Central. Amniotic Fluid: 4.1 cm SDP. OBSERVED STRUCTURES: Calvarium/Spine: Cerebellum 1.8 cm, 18 weeks 2 days Cisterna Magna: 5.1 mm. Nuchal Fold: 6.1 mm Lateral Ventricle: 7.1 mm CSP Choroid Plexus Midline Falx Spine Abdomen: Stomach Urinary bladder Kidneys Diaphragm Face: Orbital view Limbs: Upper extremities Lower extremities Feet IMPRESSION: 1. Sonographic gestational age 19 weeks 2 days with sonographic due date 07/11/2025. Sonographic age is 5 days behind the clinical age. 2. Estimated weight 35th percentile. Abdominal circumference 46th percentile. Biparietal diameter less than 3rd percentile. 3. Nuchal fold measures 6.1 mm which is considered mildly thickened. Cerebellum measures 1.8 cm, 18 weeks 2 days. Choroid plexus cyst noted on the right. Echogenic bowel noted. Incomplete visualization of the heart structures, left hand, nose, lips and profile. Level 2 maternal medicine consult recommended. 4. Placental menezes measures 4.5 x 1.8 x 5.3 cm adjacent to the placental cord insertion. This should be further evaluated at the next visit. Floyd Damon M.D. Diagnostic Radiologist [email or web address] Transcribed: 3:44 pm DW/Dictated by: Floyd Damon MD @ 02/16/2025 2:32:00 PM (Electronically Signed)
== END 2025-02-16 08:11 | disposition home or self-care (01) ==
LOC: US 08:11
PROVIDERS: PCP Emergency Medicine; Visit Provider Registered Nurse
DX: Z34.92 Encounter for supervision of normal pregnancy, unspecified, second trimester (principal); O36.5920 Maternal care for other known or suspected poor fetal growth, second trimester, not applicable or unspecified; Z3A.19 19 weeks gestation of pregnancy
CPT/HCPCS: 76805

== ENCOUNTER 2025-04-20 12:01 | Outpatient (CLI) | payer OTHER, SELFPAY | END 2025-04-20 12:02 | disposition home or self-care (01) | LOC: NFLDREF 04-22 18:55 | PROVIDERS: Referring Provider Emergency Medicine; Visit Provider Registered Nurse | DX: Z34.93 Encounter for supervision of normal pregnancy, unspecified, third trimester (principal); Z3A.28 28 weeks gestation of pregnancy; O43.93 Unspecified placental disorder, third trimester; Z3A.29 29 weeks gestation of pregnancy | CPT/HCPCS: 86592 ==

== ENCOUNTER 2025-04-20 12:04 | Outpatient (CLI) | payer OTHER, SELFPAY ==
--- NOTE | 2025-04-20 12:15 | CRLHL7_ITS ---
For Patients: As a result of the Century Cures Act, medical imaging exams and procedure reports are released immediately into your electronic medical record. You may view this report before your referring provider. If you have questions, please contact your health care provider. OB ULTRASOUND INDICATION: Abnormal placenta. MADDISON by US: 07/12/2025. GA: 28 w, 1 d. COMPARISON: 02/16/2025, 12/01/2024. TECHNIQUE: Real time garcia scale imaging of the fetus was performed. Transabdominal imaging performed. CERVIX: Not visualized. POSITIONING: Vertex. AMNIOTIC FLUID: 4.8 cm SDP (N: greater than 2 x 1 cm). PLACENTA: Technique: Transabdominal. PLACENTA POSITION: Posterior. DOPPLER: heart rate: 142 bpm. BIOMETRY: BPD: 7.2 cm. 28 w, 6 d, 61 percent. HC: 26.4 cm. 28 w, 5 d, 36 percent. AC: 24.7 cm. 29 w, 0 d, 68 percent. FL: 5.6 cm. 29 w, 2 d, 70 percent. FL/AC ratio: 22.53 percent. HC/AC ratio: 1.07. EFW: 1326 g. Weight: 2 lbs, 15 oz. age by this US: 29 w, 0 d. MADDISON by this US: 07/06/2025. Percentile by MADDISON: 72 percent. IMPRESSION: 1. Sonographic gestational age 29 weeks 0 days with sonographic due date 07/06/2025. The clinical due date has been changed to 07/12/2025 by maternal medicine. 2. Estimated weight 72nd percentile. Abdominal circumference 68th percentile. Floyd Damon M.D. Diagnostic Radiologist [email or web address] VITA/Dictated by: Floyd Damon MD @ 04/20/2025 4:25:00 PM (Electronically Signed)
== END 2025-04-20 12:05 | disposition home or self-care (01) ==
LOC: US 12:05
PROVIDERS: Visit Provider Obstetrics & Gynecology
DX: O43.93 Unspecified placental disorder, third trimester (principal); Z3A.29 29 weeks gestation of pregnancy
CPT/HCPCS: 76816

== ENCOUNTER 2025-06-02 09:03 | Outpatient (CLI) | payer OTHER, SELFPAY ==
--- NOTE | 2025-06-02 09:15 | CRLHL7_ITS ---
For Patients: As a result of the Cures Act, medical imaging exams and procedure reports are released immediately into your electronic medical record. You may view this report before your referring provider. If you have questions, please contact your health care provider. OB ULTRASOUND MADDISON by US: 07/12/2025. GA: 34 w, 2 d. Single. Comparison: Ultrasound 04/20/2025, 03/17/2025. INDICATION: Growth. Placental lakes. TECHNIQUE: Real time grayscale imaging of the fetus was performed. Transabdominal. CERVIX: Not visualized. POSITIONING: Breech. AMNIOTIC FLUID: 2.9 cm. SDP (N: greater than 2 x 1 cm) PLACENTA: Technique: Transabdominal. PLACENTA POSITION: Posterior. DOPPLER: heart rate: 139 bpm. BIOMETRY: BPD: 8.3 cm. 33 w, 7 d, 20.4%. HC: 31.2 cm. 35 w, 0 d, 30.3%. AC: 31.4 cm. 35 w, 2 d, 81.3%. FL: 6.8 cm. 35 w, 0 d, 58.8%. FL/AC ratio: 21.7%. HC/AC ratio: 1.0. EFW: 2555g. Weight: 5 lbs., 10 oz. age by this US: 34 w, 5 d. MADDISON by this US: 07/09/2025. Percentile by MADDISON: 64.5%. IMPRESSION: 1. Posterior placenta. No placental lakes. 2. Sonographic gestational age 34 weeks 5 days and sonographic due date 07/09/2025. Good correlation with dates. Normal interval growth. 3. Estimated weight 65th percentile. Abdominal circumference 81st percentile. Floyd Damon M.D. Diagnostic Radiologist [email or web address] JOSIE/[email or web address] kaiser/Dictated by: Floyd Damon MD @ 06/02/2025 10:43:00 AM (Electronically Signed)
== END 2025-06-02 09:04 | disposition home or self-care (01) ==
LOC: US 09:04
PROVIDERS: Visit Provider Registered Nurse
DX: O28.3 Abnormal ultrasonic finding on antenatal screening of mother (principal); Z3A.34 34 weeks gestation of pregnancy
CPT/HCPCS: 76816

== ENCOUNTER 2025-06-15 12:19 | Outpatient (CLI) | payer OTHER, SELFPAY ==
--- NOTE | 2025-06-15 12:26 | CRLHL7_ITS ---
For Patients: As a result of the Cures Act, medical imaging exams and procedure reports are released immediately into your electronic medical record. You may view this report before your referring provider. If you have questions, please contact your health care provider. OB ULTRASOUND MADDISON by US: 07/12/2025. GA: 36 w, 1 d. Single. Comparison: 06/02/2025, 04/20/2025, 03/17/2025. INDICATION: GDMA2. TECHNIQUE: Real time grayscale imaging of the fetus was performed. Transabdominal. CERVIX: Not visualized. POSITIONING: Vertex. AMNIOTIC FLUID: 5.6 cm. SDP (N: greater than 2 x 1 cm) BIOPHYSICAL PROFILE: 2: Gross body movements 2: tone 2: Respiratory activity 2: Amniotic fluid SDP (N: greater than 2 x 1 cm) 8/8: Total score PLACENTA: Technique: Transabdominal. PLACENTA POSITION: Posterior. DOPPLER: heart rate: 126 bpm. IMPRESSION: Normal biophysical profile score 8/8. Floyd Damon M.D. Diagnostic Radiologist [email or web address] JOSIE/[email or web address] kaiser/Dictated by: Floyd Damon MD @ 06/15/2025 3:11:00 PM (Electronically Signed)
== END 2025-06-15 12:20 | disposition home or self-care (01) ==
LOC: US 12:19
PROVIDERS: Visit Provider Obstetrics & Gynecology
DX: O24.419 Gestational diabetes mellitus in pregnancy, unspecified control (principal); Z3A.36 36 weeks gestation of pregnancy
CPT/HCPCS: 76819

== ENCOUNTER 2025-06-15 13:25 | Outpatient (CLI) | payer OTHER, SELFPAY ==
[2025-06-16 12:11] LABS: Strep B DNA Probe Negative (Negative)
[2025-06-16 12:23] LABS: Strep B Susceptibility Needed? No
== END 2025-06-15 13:26 | disposition home or self-care (01) ==
LOC: NFLDREF 13:25
PROVIDERS: Visit Provider Obstetrics & Gynecology
DX: Z34.93 Encounter for supervision of normal pregnancy, unspecified, third trimester (principal)
CPT/HCPCS: 87081; 87653

== ENCOUNTER 2025-06-23 09:11 | Outpatient (CLI) | payer OTHER, SELFPAY ==
--- NOTE | 2025-06-23 09:15 | CRLHL7_ITS ---
For Patients: As a result of the Century Cures Act, medical imaging exams and procedure reports are released immediately into your electronic medical record. You may view this report before your referring provider. If you have questions, please contact your health care provider. OB ULTRASOUND INDICATION: GDM. MADDISON by US: 07/12/2025. GA: 37 w, 2 d. Single. COMPARISON: 06/15/2025, 06/02/2025, 04/20/2025. TECHNIQUE: Real time garcia scale imaging of the fetus was performed. Transabdominal imaging performed. CERVIX: Not visualized. POSITIONING: Vertex. AMNIOTIC FLUID: 3.0 cm SDP (N: greater than 2 x 1 cm). PLACENTA: Technique: Transabdominal. PLACENTA POSITION: Posterior. DOPPLER: heart rate: 127 bpm. BIOMETRY: BPD: 8.9 cm. 35 w, 6 d, 27.9 percent. HC: 32.4 cm. 36 w, 4 d, 13.6 percent. AC: 34.2 cm. 38 w, 1 d, 84.7 percent. FL: 7.5 cm. 38 w, 1 d, 72.1 percent. FL/AC ratio: 21.79 percent. HC/AC ratio: 0.95. EFW: 3279 g. Weight: 7 lbs, 4 oz. age by this US: 37 w, 1 d. MADDISON by this US: 07/13/2025. Percentile by MADDISON: 68.7 percent. IMPRESSION: 1. Sonographic gestational age 37 weeks 1 day and sonographic due date 07/13/2025. Good correlation with dates. Normal interval growth. 2. Estimated weight 69th percentile. Abdominal circumference 85th percentile. Floyd Damon M.D. Diagnostic Radiologist [email or web address] VITA/Dictated by: Floyd Damon MD @ 06/25/2025 1:16:00 PM (Electronically Signed)
== END 2025-06-23 09:12 | disposition home or self-care (01) ==
LOC: US 09:11
PROVIDERS: Visit Provider Obstetrics & Gynecology
DX: O24.419 Gestational diabetes mellitus in pregnancy, unspecified control (principal); Z3A.37 37 weeks gestation of pregnancy
CPT/HCPCS: 76816

== ENCOUNTER 2025-06-28 01:55 | Outpatient (CLI) | payer OTHER, SELFPAY ==
[2025-06-28 02:02] VITALS: PULSE 98; O2SAT 80
[2025-06-28 02:03] VITALS: PULSE 75; O2SAT 100
[2025-06-28 02:07] VITALS: BP 122/73; PULSE 81
[2025-06-28 02:14] VITALS: BMI 31.6
--- NOTE | 2025-06-28 04:32 | PC.OBNST ---
NST Note NST Note Start: 06/28/25 02:01 Freq: ONCE Status: Active Protocol: Document 06/28/25 04:11 HBC (Rec: 06/28/25 04:29 HBC No Response) NST Note 4 Para (# of births) 3 EDC 07/12/25 Gestational Age In 38 Weeks & 0 Days Weeks & Days Patient Presented Contractions/cramping with Complaint(s) of Reactive Yes Appropriate for Yes Gestational Age RN Keegan RN Date 06/28/25 Reactive Yes Appropriate for Yes Gestational Age MICHELLE Grier RNC Date 06/28/25 OB NST charge Yes Complete NST Note Yes via Write Note The provider's electronic signature indicates the NST is reactive/appropriate for gestational age. *Note to provider: If an addendum is required, open the patient's chart and click on the note under the Nurse/Allied Health tab.
== END 2025-06-28 04:11 | disposition home or self-care (01) ==
LOC: OB OUT 01:56 → OB 01:57
PROVIDERS: Visit Provider Obstetrics & Gynecology
DX: O47.1 False labor at or after 37 completed weeks of gestation (principal); Z3A.38 38 weeks gestation of pregnancy
CPT/HCPCS: 59025; G0463